=== PATIENT | female | born 1950 | race Caucasian/White ===

== ENCOUNTER → 2017-11-09 | Day surgery (SDC) | payer OTHER ==
[~2017-11-09] VITALS: Ht 167.6 cm; Wt 82.6 kg
[~2017-11-09] MED LIST: ASPIRIN EC81 M1 PO; COZAAR50 M1 PO; PANTOPRAZOLE SO40 M1 PO; TRIAMCINOL0.1 %/453 TOP; VITAMIN D2000 UNIT PO
--- NOTE | 2017-11-09 09:13 | Operative Report ---
Operative/Inv Procedure Report Surgery Date: 11/09/17 Name of Procedure: Aortogram, left lower extremity diagnostic angiogram, left SFA in-stent stenosis balloon angioplasty with a 6 x 150 mm drug-coated Lutonix balloon, ultrasound guidance for vascular access, Exoseal closure device Pre-Operative Diagnosis: PAD with LLE worsening clsudication Post-Operative Diagnosis: PAD with LLE worsening clsudication Estimated Blood Loss: scant Surgeon/Mechanical Equipment Sales Engineer: Gael Delgado MD Anesthesia: local monitored anesthesi Complications: None Condition: Stable to PACU/SDS Operative Indication: This is a 67-year-old female with advanced peripheral arterial disease related to smoking. She quit several years ago but her disease has advanced. She had bilateral SFA stenting previously. Her right stents have occluded. Recently she began complaining of worsening left lower extremity claudication. This has been increasing in severity and duration. Ultrasound demonstrates severe in- stent restenosis. She is here for intervention. She was advised of the risks of the procedure including limb loss, renal failure and bleeding. She decide to proceed Knowing that there is a high risk of restenosis due to her severe disease. Operative/Procedure Note Note: Patient was placed supine on the operating room table. After adequate anesthesia, IV lines, timeout was held in accordance with [facility] policy. The right femoral artery was selected for access. This was exchanged for a coaxial dilator system and sheath. Access was achieved under ultrasound guidance with image saved. The artery was patent. Through the sheath a aortogram was performed with an Omni Flush catheter. This demonstrates a patent aorto-renal segment. The aorta is small. There is no hemodynamically significant stenosis in the common or external iliac arteries bilaterally. A catheter was placed over the bifurcation to the left external and femoral system. A right and left diagnostic angiogram was performed. The right lower extremity and skin was performed via a sheath injection. Left lower extremity angiography demonstrates a patent common femoral and profunda femoris. The left SFA is patent. There is a stent placed in the mid SFA which demonstrates moderate to severe stenosis. The above and below-knee popliteal artery are patent. The anterior & posterior tibial are patent proximally then occlude. The peroneal artery is the dominant runoff to the patient's left foot. The right lower extremity angiogram demonstrates a patent common femoral artery. The SFA is occluded at its origin. There are stents placed from the patient's proximal SFA to the above-knee popliteal artery. These also are occluded. There is reconstitution of the popliteal artery. There is retrograde flow into the popliteal artery. There appears to be single-vessel runoff via the peroneal artery on the right side as well. The patient was then bolused with 4000 units of heparin. A 5 M[place]gas[place] sheath was placed over the bifurcation to the left femoral system. A Bentson wire was used to cross the severe in-stent stenosis. The area was then treated with a 6 x 150 mm Lutonix drug-coated balloon. Completion angiography demonstrates in-line flow through the segment. The catheter sheath and wire systems were then removed. A 5 Monegasque closure device was used to seal the artery. The patient tolerated the procedure well was transported to recovery area.
--- NOTE | 2017-11-09 09:48 | RADIOLOGY REPORT ---
EXAMINATION: Intraoperative fluoroscopy CLINICAL INFORMATION: Left superficial femoral artery angioplasty COMPARISON: None. TECHNIQUE: Intraoperative fluoroscopy was provided for use by Dr. Delgado. A total of 17 images were saved to PACS. A radiologist was not present during imaging. TOTAL FLUOROSCOPIC TIME: 4 minutes and 33 seconds. FINDINGS\E\IMPRESSION: Intraoperative fluoroscopy provided for use by Dr. Delgado. Please see operative note for detailed findings.
== END ==
LOC: STS 01:42
DX: I70.212 Atherosclerosis of native arteries of extremities with intermittent claudication, left leg (principal); F17.200 Nicotine dependence, unspecified, uncomplicated; I10 Essential (primary) hypertension; K21.9 Gastro-esophageal reflux disease without esophagitis
CPT/HCPCS: 73552; C1725; C1760; J0690; J1644; J2250; Q9967

== ENCOUNTER 2018-02-23 07:46 | Emergency (ER) | payer OTHER ==
[~2018-02-23] VITALS: Ht 165.1 cm; Wt 82.1 kg
[2018-02-23 07:48] VITALS: BP 132/75
--- NOTE | 2018-02-23 08:00 | ED GENERAL ADULT ---
History of Present Illness General Chief Complaint: Female Urogenital Problems Stated Complaint: ?UTI Source: patient Exam Limitations: no limitations Vital Signs & Intake/Output Vital Signs & Intake/Output Vital Signs Date Time Temp Pulse Resp B/P B/P Pulse O2 O2 Flow FiO2 Mean Ox Delivery Rate 02/23 0748 97.0 96 20 132/75 Room Air Allergies Coded Allergies: No Known Allergies (11/06/17) Reconcile Medications Aspirin (Ecotrin*) 81 MG TABLET.DR 2 TAB PO DAILY HEART/BLOOD (Reported) Cholecalciferol (Vitamin D3) (Vitamin D) 2,000 UNIT CAPSULE 1 CAP PO DAILY SUPPLEMENT (Reported) Losartan Potassium (Cozaar) 50 MG TABLET 1 TAB PO DAILY BP (Reported) Pantoprazole Sodium 40 MG TABLET.DR 1 TAB PO DAILY GI (Reported) Triage Note: PT TO ED C/O UTI S/S SINCE LAST NIGHT. C/O PRESSURE AND BURNING WITH URINATION. Triage Nurses Notes Reviewed? yes HPI: 67-year-old female presents with urinary symptoms. She reports urinary frequency and bladder pressure since yesterday. She denies back pain, fever, chills. She reports that she is a prediabetic and not any medication for diabetes. She has a history of peripheral arterial disease, takes Plavix and has a stent. She is on antihypertensive. No other complaints. No back pain fever chills reported. Past History Travel History Traveled to [place] past 21 day No Medical History Any Pertinent Medical History? 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 No Review of Systems Review of Systems Constitutional: Denies: no symptoms. EENTM: Denies: no symptoms. Respiratory: Denies: no symptoms. Cardiovascular: Denies: no symptoms. GI: Denies: no symptoms. Genitourinary: Denies: frequency, pain. Musculoskeletal: Denies: no symptoms. Skin: Denies: no symptoms. Physical Exam Physical Exam General Appearance: well developed/nourished Head: atraumatic Eyes: Bilateral: normal appearance. Ears, Nose, Throat: normal ENT inspection Respiratory: normal breath sounds Gastrointestinal: normal bowel sounds, soft, non-tender, no organomegaly Back: normal inspection Core Measures ACS in differential dx? No CVA/TIA Diagnosis: No Sepsis Present: No Sepsis Focused Exam Completed? No Progress Differential Diagnoses I considered the following diagnoses in my evaluation of the patient: . Plan of Care: Orders Procedure Date/time Status Add-on Test (ER Only) 02/23 0821 Active CULTURE,URINE 02/23 0752 Active URINALYSIS 02/23 0749 Complete Laboratory Tests 02/23/18 0752: Urine Color ORANG H, Urine Clarity CLDY H, Urine pH 6.5, Ur Specific [place] 1.010, Urine Protein 100 H, Urine Ketones NEG, Urine Nitrite POS H, Urine Bilirubin NEG, Urine Urobilinogen 4.0 H, Ur Leukocyte Esterase LARGE H, Ur Microscopic SEDIMENT EXAMINED, Urine RBC 10-15 H, Urine WBC 50-75 H, Ur Epithelial Cells OCCAS, Urine Bacteria MANY H, Urine Hemoglobin LARGE H, Urine Glucose 100 H Microbiology 02/23 0752 URINE ROUT: Urine Culture - RECD Initial ED EKG: none Comments: Presentation consistent with UTI. Not consistent with pyelonephritis. The patient has nontoxic, looking comfortable. UTI confirmed on urinalysis. Previous urine culture from 2014 shows E. coli sensitive to everything. We will start the patient on Macrobid. Departure Departure Time of Disposition: 822 Disposition: HOME OR SELF CARE Condition: Stable Clinical Impression Primary Impression: UTI (urinary tract infection) Referrals: Pasha Pak MD (PCP/Family) Additional Instructions: Return if worse, return for back pain or fever. Departure Forms: Customer Survey General Discharge Information Comments Prescription sent to [facility] Critical Care Note Critical Care Note Critical Care Time: non-applicable
[2018-02-23] MEDS ORDERED: MACROBID 100 M100 MG PO (08:33)
[2018-02-23] MEDS ORDERED: PYRIDIUM200 M1 PO (08:35)
== END 2018-02-23 08:32 ==
LOC: ERH 07:46
DX: N39.0 Urinary tract infection, site not specified (principal)
CPT/HCPCS: 81001; 87086